=== PATIENT | female | born 1955 | race Caucasian/White ===

== ENCOUNTER 2016-07-03 19:03 | Emergency (ER) | payer OTHER ==
[~2016-07-03] VITALS: Ht 157.5 cm; Wt 60.3 kg
--- NOTE | 2016-07-03 19:39 | ED GI/GU/ABDOMINAL COMPLAINT ---
History of Present Illness General Chief Complaint: Abdominal Pain/Flank Pain Stated Complaint: ABD PAIN HX KIDNEY STONES Source: patient, family Exam Limitations: no limitations Vital Signs & Intake/Output Vital Signs & Intake/Output Vital Signs Date Time Temp Pulse Resp B/P Pulse O2 O2 Flow FiO2 Ox Delivery Rate 07/04 2103 98.2 90 18 148/84 97 Room Air 07/03 193 98.0 93 18 150/88 99 Room Air ED Intake and Output 07/04 0000 07/03 1200 Intake Total Output Total Balance Patient 133 lb Weight Allergies Uncoded Allergies: SEAFOOD (07/03/16) Reconcile Medications Cefuroxime Axetil (Cefuroxime) 500 MG TABLET 1 TAB PO BID urinary tract infection Ibuprofen 600 MG TABLET 1 TAB PO TID PRN pain with food Tramadol HCl (Ultram) 50 MG TABLET 1-2 TAB PO BIDP PRN pain twenty... [id number]... generic is okay Triage Note: PT TO TRIAGE WITH C/O R SIDED ABD PAIN /10 STARTED YESTERDAY, PT DENIES N/V, LAST BM TODAY WNL, PT DENIES URINARY S/S, AFEBRILE, VSS. MD CHAMP IN TRIAGE FOR PT EVAL. Triage Nurses Notes Reviewed? yes ? n Is pt currently ? No Onset: Gradual Location: right flank Radiation: RLQ Activities at Onset: none Prior Abdominal Problems: similar symptoms Modifying Factors: Worsens With: palpation. Associated Symptoms: abdominal pain, nausea/vomiting HPI: 61 yo woman h/o kidney stones, presents with right flank pain since yesterday. She notes mild nausea, no vomiting, fever, diarrhea, chest pain. She notes mild increasd urination. She is otherwise well. Past History Travel History Traveled to [place] past 21 day No Medical History Any Pertinent Medical History? see below for history Cardiovascular: hypertension, hyperlipidemia Renal: nephrolithiasis Surgical History Surgical History: none Psychosocial History What is your primary language Wolof Tobacco Use: Never used Family History Hx Contributory? No Review of Systems Review of Systems Constitutional: Reports: no symptoms. EENTM: Reports: no symptoms. Respiratory: Reports: no symptoms. Cardiovascular: Reports: no symptoms. GI: Reports: no symptoms. Genitourinary: Reports: no symptoms. Musculoskeletal: Reports: no symptoms. Skin: Reports: no symptoms. Neurological/Psychological: Reports: no symptoms. Hematologic/Endocrine: Reports: no symptoms. Immunologic/Allergic: Reports: no symptoms. All Other Systems: Reviewed and Negative Physical Exam Physical Exam General Appearance: well developed/nourished, mild distress Head: atraumatic, normal appearance Eyes: Bilateral: normal appearance. Ears, Nose, Throat, Mouth: hearing grossly normal Neck: normal inspection, supple, full range of motion, normal alignment Respiratory: normal breath sounds, chest non-tender, no respiratory distress, quiet respiration, lungs clear Cardiovascular: regular rate/rhythm Gastrointestinal: normal bowel sounds, soft, non-tender, no organomegaly Back: normal inspection Extremities: normal range of motion Neurologic/Psych: no motor/sensory deficits, awake, alert, oriented x 3 Skin: intact, normal color, warm/dry Core Measures ACS in differential dx? No Severe Sepsis Present: No Septic Shock Present: No Progress Differential Diagnosis: nephrolithiasis vs other. Plan of Care: Orders Procedure Date/time Status Add-on Test (ER Only) 07/03 2041 Active CULTURE,URINE 07/03 1944 Active URINALYSIS 07/04 1927 Complete LIPASE 07/04 1927 Complete HEPATIC FUNCTION PANEL 07/04 1927 Complete CBC WITHOUT DIFFERENTIAL 07/04 1927 Complete BASIC METABOLIC PANEL 07/04 1927 Complete AMYLASE 07/04 1927 Complete Laboratory Tests 07/03/161944: Urinalysis MOD H, Urine Color YEL, Urine Clarity HAZY H, Urine pH 7.0, Ur Specific [place] 1.015, Urine Protein NEG, Urine Ketones NEG, Urine Nitrite NEG, Urine Bilirubin NEG, Urine Urobilinogen 0.2, Ur Leukocyte Esterase MOD H, Ur Microscopic SEDIMENT EXAMINED, Urine RBC 50-75 H, Urine WBC 5-10 H, Ur Epithelial Cells FEW, Urine Bacteria MANY H, Urine Mucus FEW, Urine Hemoglobin LARGE H, Urine Glucose NEG 07/03/161943: Anion Gap 9, Estimated GFR 57 L, BUN/Creatinine Ratio 31.0 H, Glucose 114 H, Calcium 10.3 H, Total Bilirubin 0.3, Direct Bilirubin 0.3, AST 22, ALT 46, Alkaline Phosphatase 73, Total Protein 7.5, Albumin 4.4, Amylase 107, Lipase 137 , CBC w Diff NO MAN DIFF REQ, RBC 4.17 L, MCV 91.7, MCH 30.8, RDW 12.0, MPV 7.8 , Gran % 59.5, Lymphocytes % 31.8, Monocytes % 6.7, Eosinophils % 1.8, Basophils % 0.2, Absolute Granulocytes 5.0, Absolute Lymphocytes 2.7, Absolute Monocytes 0.6, Absolute Eosinophils 0.2, Absolute Basophils 0, PUBS MCHC 33.6 Microbiology 07/03 1944 URINE ROUT: Urine Culture - RECD Diagnostic Imaging: Viewed by Me: CT Scan. Discussed w/RAD: CT Scan. Radiology Impression: abd/pelvic ... right 4mm stone... full report below. Initial ED EKG: normal axis, normal intervals, normal p-waves, normal QRS complex, normal sinus rhythm Comments: PATIENT: HANDY MENSAH PRESENT AGE: 61 PATIENT ACCOUNT NO: [id number] : 56 LOCATION: [facility] ORDERING PHYSICIAN: MINNIE OAKES MD SERVICE DATE: 07/03/16 EXAM TYPE: CAT - CT ABD & PELVIS W/O IV CONTRAS EXAMINATION: CT ABDOMEN AND PELVIS WITHOUT CONTRAST CLINICAL INFORMATION: RIght flank pain. COMPARISON: None. TECHNIQUE: Contiguous axial thin section helical images of the abdomen and pelvis were performed without oral or IV contrast. The data set was reformatted in the coronal and sagittal planes and reviewed on an independent workstation. DLP: 290 mGy-cm. FINDINGS: There is mild bibasilar atelectasis. The visualized lung bases are otherwise clear. The visualized portions of the heart are unremarkable. The liver is of normal size and attenuation without focal lesions nor intrahepatic biliary ductal dilation. A normal gallbladder is identified. There is no wall thickening or discernible pericholecystic fluid. The spleen, pancreas, adrenal glands are unremarkable. There is an obstructive 4 mm proximal right ureteral calculus with associated grade 2 hydronephrosis. No additional calculi are present. There are no left renal calculi. There is no left-sided hydronephrosis. There is no abdominal free fluid. There is neither mesenteric nor retroperitoneal lymphadenopathy. Normal unopacified loops of small and large bowel are identified. There is no pelvic free fluid. The urinary bladder is unremarkable. There is neither pelvic nor inguinal lymphadenopathy. Anterior to the sacrum on image 537/744 is an approximately 3.3 cm soft tissue focus that appears to emanate from the left S2 neural foramen. Bone windows: Neither sclerotic nor lytic bone lesions are identified. IMPRESSION: Obstructive 4 mm proximal right ureteral calculus with associated grade 2 hydronephrosis. 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 Recommendation is for correlation with lumbosacral spine MRI for further tissue characterization. DICTATED BY: NIKITA PAINTING MD DATE/TIME DICTATED:07/03/162020 COAL CUTTER:VINEET DATE/TIME TRANSCRIBED:07/03/162020 CONFIDENTIAL, DO NOT COPY WITHOUT APPROPRIATE AUTHORIZATION. <Electronically signed in Other Vendor System> SIGNED BY: NIKITA PAINTING MD 07/03/162029 Departure Departure Disposition: HOME OR SELF CARE Condition: Stable Clinical Impression Primary Impression: Renal colic on right side Secondary Impressions: Kidney stones, UTI (urinary tract infection) Departure Forms: Customer Survey General Discharge Information Prescriptions: Current Visit Scripts Cefuroxime Axetil (Cefuroxime) 1 TAB PO BID #14 TAB Ibuprofen 1 TAB PO TID PRN pain #30 TAB with food Tramadol HCl (Ultram) 1-2 TAB PO BIDP PRN pain #20 TAB twenty... [id number]... generic is okay Comments pt feels well after toradol... 4mm stone noted... discussed at length.. .pt referred to urology... gave abx for u/a suggestive of mild uti... close follow up advised.
[2016-07-03 19:58] LABS: ABSOLUTE BASOPHIL COUNT 0 /CUMM (0.0-0.2); ABSOLUTE EOSINOPHIL COUNT 0.2 /CUMM (0.0-0.7); ABSOLUTE LYMPH COUNT 2.7 /CUMM (1.2-3.4); ABSOLUTE MONOCYTE COUNT 0.6 /CUMM (0.10-0.60); BASOPHIL % 0.2 % (0.0-2.0); EOSINOPHIL % 1.8 % (0-5); GRANULOCYTE % 59.5 % (42.2-75.2); HEMATOCRIT 38.2 % (37-47); MEAN CORPUSCULAR HGB 30.8 PG (27.0-31.0); MEAN CORPUSCULAR HGB CONC 33.6 G/DL (33.0-37.0); MEAN CORPUSCULAR VOLUME 91.7 FL (81.0-99.0); MEAN PLATELET VOLUME 7.8 FL (7.4-10.4); PLATELET COUNT 295 /CUMM (130-400); RED BLOOD CELL CT 4.17 /CUMM (4.20-5.40); WHITE BLOOD CELL COUNT 8.3 /CUMM (4.8-10.8)
--- NOTE | 2016-07-03 20:30 | CT SCAN REPORT ---
EXAMINATION: CT ABDOMEN AND PELVIS WITHOUT CONTRAST CLINICAL INFORMATION: RIght flank pain. COMPARISON: None. TECHNIQUE: Contiguous axial thin section helical images of the abdomen and pelvis were performed without oral or IV contrast. The data set was reformatted in the coronal and sagittal planes and reviewed on an independent workstation. DLP: 290 mGy-cm. FINDINGS: There is mild bibasilar atelectasis. The visualized lung bases are otherwise clear. The visualized portions of the heart are unremarkable. The liver is of normal size and attenuation without focal lesions nor intrahepatic biliary ductal dilation. A normal gallbladder is identified. There is no wall thickening or discernible pericholecystic fluid. The spleen, pancreas, adrenal glands are unremarkable. There is an obstructive 4 mm proximal right ureteral calculus with associated grade 2 hydronephrosis. No additional calculi are present. There are no left renal calculi. There is no left-sided hydronephrosis. There is no abdominal free fluid. There is neither mesenteric nor retroperitoneal lymphadenopathy. Normal unopacified loops of small and large bowel are identified. There is no pelvic free fluid. The urinary bladder is unremarkable. There is neither pelvic nor inguinal lymphadenopathy. Anterior to the sacrum on image 537/744 is an approximately 3.3 cm soft tissue focus that appears to emanate from the left S2 neural foramen. Bone windows: Neither sclerotic nor lytic bone lesions are identified. IMPRESSION: Obstructive 4 mm proximal right ureteral calculus with associated grade 2 hydronephrosis. 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 Recommendation is for correlation with lumbosacral spine MRI for further tissue characterization.
[2016-07-03] MEDS ORDERED: CEFUROXIME500 MG PO (20:45)
[2016-07-03] MEDS ORDERED: IBUPROFEN600 M1 PO (20:45)
[2016-07-03] MEDS ORDERED: ULTRAM50 M1 PO (20:45)
[2016-07-03 21:04] VITALS: BP 148/84
== END 2016-07-03 21:06 ==
LOC: ERH 19:03
PROVIDERS: Pediatrics
DX: N23 Unspecified renal colic (principal); N20.0 Calculus of kidney; N39.0 Urinary tract infection, site not specified
CPT/HCPCS: 74176; 81001; 87086; 96361; 96374; 96375; J0696; J1885